=== PATIENT | male | born 1940 | race Caucasian/White ===

== ENCOUNTER 2019-10-21 02:09 | Inpatient (IN) | payer MEDICARE ==
[~2019-10-21] VITALS: Ht 175.3 cm; Wt 123.6 kg
[2019-10-21] MEDS ORDERED: DICLOFENAC SOD100 G1 TOP (02:23)
[2019-10-21] MEDS ORDERED: TAMSULOSIN HCL0.4 M1 PO (02:24)
[2019-10-21] MEDS ORDERED: FUROSEMIDE40 MG PO (02:24)
[2019-10-21] MEDS ORDERED: LOSA50 PO (02:24)
[2019-10-21] MEDS ORDERED: Klor-Con 1010 MEQ PO (02:24)
[2019-10-21] MEDS ORDERED: LEVOCETIRIZINE D5 MG PO (02:24)
[2019-10-21] MEDS ORDERED: DOXA4 PO (02:26)
[2019-10-21] MEDS ORDERED: AMLO10 PO (02:26)
[2019-10-21 03:07] LABS: BASOPHILS ABSOLUTE AUTO 0.06 K/mm3 (0.00-0.23); BASOPHILS PERCENT AUTO 1 % (0-2); EOSINOPHILS ABSOLUTE AUTO 0.15 K/mm3 (0.00-0.68); EOSINOPHILS PERCENT AUTO 2 % (0-6); Hematocrit 44.2 % (37.0-53.0); Hemoglobin 14.7 g/dL (13.5-17.5); IMMATURE GRAN ABSOLUTE AUTO 0.04 K/mm3 (0.00-0.10); IMMATURE GRAN PERCENT AUTO 1 % (0-1); LYMPHOCYTES ABSOLUTE AUTO 1.52 K/mm3 (0.84-5.20); LYMPHOCYTES PERCENT AUTO 17 % (21-46); MONOCYTES ABSOLUTE AUTO 0.71 K/mm3 (0.16-1.47); MONOCYTES PERCENT AUTO 8 % (4-13); Mean Corpuscular HGB 31.5 pg (26.0-34.0); Mean Corpuscular HGB Conc 33.3 g/dL (31.5-36.5); Mean Corpuscular Volume 95 fL (80-100); Mean Platelet Volume 10.3 fL (9.1-12.4); NEUTROPHILS ABSOLUTE AUTO 6.34 K/mm3 (1.96-9.15); NEUTROPHILS PERCENT AUTO 72 % (41-73); Platelet Count 230 K/mm3 (150-400); RDW Coefficient Variation 12.7 % (11.7-14.2); RDW Standard Deviation 44.6 fL (35.1-46.3); Red Blood Cell Count 4.66 M/mm3 (4.30-5.90); White Blood Cell Count 8.82 K/mm3 (4.00-11.30)
[2019-10-21 03:24] LABS: Alanine Aminotransfer (ALT/SGP 31 U/L (12-78); Albumin, Blood 3.1 g/dL (3.4-5.0); Albumin/Globulin Ratio 0.7 (0.8-1.8); Alk Phos 96 U/L (50-136); Anion Gap 5 mmol/L (6-16); Aspartate Aminotrans (AST/SGOT 64 U/L (12-37); Bilirubin, Total 0.6 mg/dL (0.1-1.0); Blood Urea Nitrogen 14 mg/dL (8-24); Bun/Creatinine Ratio 15.3 (12.0-20.0); CO2, Blood 27 mmol/L (21-32); Calcium, Blood 8.7 mg/dL (8.5-10.1); Chloride, Blood 105 mmol/L (98-108); Creatinine, Blood 0.92 mg/dL (0.60-1.20); Globulin, Blood 4.7 g/dL (2.2-4.0); Glomerular Filtration Rate >60 (60-); Glucose, Blood 172 mg/dL (70-99); Potassium, Blood 3.7 mmol/L (3.5-5.5); Sodium, Blood 137 mmol/L (136-145); Total Protein, Blood 7.8 g/dL (6.4-8.2)
[2019-10-21 03:49] LABS: International Normalized Ratio 1.01; Prothrombin Time Results 10.8 Sec (9.7-11.5)
[2019-10-21 04:25] LABS: CHOL/HDL RATIO 4.4; Cholesterol 175 mg/dL (50-200); HDL Cholesterol 40 mg/dL (>39); LDL/HDL RATIO 2.7; Low Density Lipoprotein Chol 106 mg/dL (0-110); Triglycerides 143 mg/dL (30-160); Very Low Density Lipoprot Chol 28 mg/dL (6-32)
--- NOTE | 2019-10-21 05:00 | NUR ---
PT ARRIVES TO ICU PCU STATUS FROM ER FOR DX NSTEMI, DENIES CP/PRESSURE DENIES SOB/DYSPNEA ON ARRIVAL, DENIES NUMBNESS/TINGLING OTHER THAN BASELINE, HE IS SPEAKING IN FULL SENTENCES WITHOUT INCREASED WORK OF BREATHING, LUNGS ARE CLEAR THROUGHOUT, SATS ARE HIGH 90S ON ROOM AIR, RATE WNL, LUNGS ARE CLEAR THROUGHOUT. HRR, SINUS WITH BBB, NITRO PASTE NOTED TO LEFT ANTERIOR CHEST WALL, FULL PULSES X 4 EXTREMITIES, TRACE EDEMA BILAT LOWER EXTREMITIES, SKIN TO BILAT SHINS/CALVES IS NOTED BROWN AND SCALING, PT STATES THAT HE IS SUPPOSED TO WEAR COMPRESSION SOCKS BUT THAT HE DOES NOT HE DOESN'T LIKE THEM. ABD IS DISTENDED WITH NORMOACTIVE BOWEL TONES, FIRM TO PALP, PT DENIES TENDERNESS. URINAL PROVIDED, NO VOID OF THIS TIME. FIELD ACCESS IV TO RIGHT AC SITE WNL, DRESSING IS PEELING UP FROM ARM, PREVIOUS DRESSING REMOVED AND NEW DRESSING PLACED, PT TOLERATED WELL. ORIENTED TO ROOM LAYOUT/CALL SYSTEM, PT STRONGLY ENCOURAGED TO NOT ATTEMPT UP OOB WITHOUT ASSISTANCE SECONDARY TO FALL RISK R/T MONITORING EQUIPMENT AND IV LINES. UNDERSTANDING VERBALIZED.
--- NOTE | 2019-10-21 07:30 | NUR ---
PT A&OX3. DENIES CP OR SOB. ECG SHOWS SR WITH FIRST DEGREE AV BLOCK WITH RATE 50-60'S. SBP TRENDING 170'S. LUNGS DIMINISHED IN THE BASES, BUT MAINTAINS SATS>90% ON RA. NO NOTED COUGH. NPO EXCEPT FOR SIPS OF WATER WITH MEDS-POSSIBLE TEACHER INSTRUMENTAL LATER TODAY. LOWER EXTREMITIES DISCOLORED, BROWNISH APPEARANCE-NO NOTED WOUNDS. DP/PT PULSES PALPABLE AND STRONG.
--- NOTE | 2019-10-21 10:00 | NUR ---
DR. BANGURA HERE TO SEE PT. INFORMED CONSENT OBTAINED FOR CORONARY ANGIOGRAM. RAPID COVID SCREENING COMPLETED.
--- NOTE | 2019-10-21 11:11 | NUR ---
DR. BANGURA NOTIFIED THAT COVID SCREENING NEGATIVE. ALSO MADE AWARE THAT TROPONIN 5.94. NO NEW ORDERS, PT TO GO TO COMPARATOR OPERATOR LATER TODAY.
--- NOTE | 2019-10-21 12:09 | NUR ---
PT HAS BEEN RESTING QUIETLY WHEN NOT DISTURBED. CONTINUES TO DENY CHEST PAIN OR SOB.
--- NOTE | 2019-10-21 12:44 | NUR ---
PARTS CHASER STAFF HERE TO PREP PT FOR ANGIOGRAM. PT VOIDED 275 CC DARK, DONALD URINE THAT APPEARED SLIGHTLY RED TINGED.
--- NOTE | 2019-10-21 12:45 | NUR ---
[facility]ED WITH SOLIS OLIVAS AND SOLIS MCGEE AT BEDSIDE.
--- NOTE | 2019-10-21 15:01 | NUR ---
PT RETURNED TO ICU 9 S/P ANGIOGRAM. PT IS A&0X3-HE DENIES CP OR SOB. PT ONLY COMPLAINT IS THAT HE IS HUNGRY. TR BAND IN PLACE TO RIGHT RADIAL ARTEREOTOMY. 12 CC OF AIR IN CUFF-NO BLEEDING OR HEMATOMA. PT IS TO BE TRANSFERED TO [facility] FOR FURTHER INTERVENTION AND POSSIBLE CABG-DR. BANGURA HAS INITIATED THE TRANSFER AND WILL NOTIFY PT AND STAFF ONCE PHYSICIAN/S HAVE ACCEPTED PT. STAT PTT TO BE DRAWN AND RESUME HEPARIN PER PHARMACY DOSING.
--- NOTE | 2019-10-21 16:12 | NUR ---
ECHO COMPLETE. PTT RESULTS REVIEWED WITH TERRA FROM PHARMACY-CONTINUE TO HOLD HEPARIN DRIP AND REPEAT PTT @ 1630.
--- NOTE | 2019-10-21 16:34 | NUR ---
PT REPORTS 12/24 LOW BACK PAIN-MED WITH FENTANY 25 MCG IVP X 1.
--- NOTE | 2019-10-21 17:09 | NUR ---
HEPARIN DRIP RESUMED AT 14 UNITS/KG/HR.
--- NOTE | 2019-10-21 17:21 | NUR ---
PT REPOSITIONED IN BED AND GIVEN NORCO 10/325 MG FOR COMPLAINT OF 10/10 LOW BACK PAIN. PT ROSALBA UPDATED REGARDING TRANSFER TO [facility]. REPORT PHONED TO SOLIS BRADY AT [facility]. PT TO TRANSFER TO [facility] ROOM 8897 [facility]-AWAITING EMS ARRIVAL FOR TRANSPORT-ETA 1740.
--- NOTE | 2019-10-21 17:37 | NUR ---
REPORT GIVEN TO EMS. PT TRANSPORTED TO [facility] VIA AMBULANCE. PT BELONGINGS AND RECORDS SENT.
== END 2019-10-21 17:45 | disposition short-term general hospital (02) | DRG 251 ==
LOC: ER 02:09 → ICUW 04:50
PROVIDERS: Emergency Medicine; ADMIT Family Medicine
PROC: 4A023N7 Measurement of Cardiac Sampling and Pressure, Left Heart, Percutaneous Approach (ICD-10-PCS; principal; 2019-10-21)
PROC: 02703ZZ Dilation of Coronary Artery, One Artery, Percutaneous Approach (ICD-10-PCS; 2019-10-21)
PROC: B2111ZZ Fluoroscopy of Multiple Coronary Arteries using Low Osmolar Contrast (ICD-10-PCS; 2019-10-21)
PROC: 4A033BC Measurement of Arterial Pressure, Coronary, Percutaneous Approach (ICD-10-PCS; 2019-10-21)
DX: I21.4 Non-ST elevation (NSTEMI) myocardial infarction (principal); Z68.41 Body mass index [BMI] 40.0-44.9, adult; Z96.653 Presence of artificial knee joint, bilateral; I10 Essential (primary) hypertension; Z66 Do not resuscitate; E66.01 Morbid (severe) obesity due to excess calories; I16.0 Hypertensive urgency
CPT/HCPCS: 36415; 71045; 80053; 80061; 83880; 84484; 85025; 85347; 85610; 85730; 92920; 93005; 93010; 93306; 93458; 93571; 96374; 96375; 99152; 99153; 99285-25; A9270-GY; C1725; C1769; C1887; C1894; C8929; J1644; J2250; J3010; J7030; Q9957; Q9967; U0002

== ENCOUNTER 2021-03-07 10:39 | Day surgery (SDC) | payer MEDICARE ==
[~2021-03-07] VITALS: Ht 175.3 cm; Wt 113.2 kg
[~2021-03-07 10:39] MED LIST: AMLO10 PO; ATOR40TA; Aspir 8181 MG; BENADRYL25 M1; CLOP75; DICLOFENAC SOD100 G1 TOP; DOXA4 PO; FUROSEMIDE40 MG PO; Flonase 0.05% N16 GM; Klor-Con 1010 MEQ PO; LEVOCETIRIZINE D5 MG PO; LOSA50 PO; METO25; MULVITA; Nitrostat0.3 MG; Norco 10-325 T1 EACH; TAMSULOSIN HCL0.4 M1 PO
--- NOTE | 2021-03-07 13:22 | NUR ---
03/07/21 1322 Elke Pisano PATIENT POSITIONED ON T MAX WITH SPIDER, WEDGE, GELX3, BOLSTERS, FOAM HOME HEALTH CAREGIVER, ARM MARLEY.
== END 2021-03-07 14:57 | disposition home or self-care (01) ==
LOC: ORSCSDS 10:39
PROVIDERS: Orthopaedic Surgery
PROC: 0RNK4ZZ Release Left Shoulder Joint, Percutaneous Endoscopic Approach (ICD-10-PCS; principal; 2021-03-07 12:00)
PROC: 0LM24ZZ Reattachment of Left Shoulder Tendon, Percutaneous Endoscopic Approach (ICD-10-PCS; principal; 2021-03-07 12:00)
DX: M75.122 Complete rotator cuff tear or rupture of left shoulder, not specified as traumatic (principal); M75.22 Bicipital tendinitis, left shoulder; M75.42 Impingement syndrome of left shoulder; I10 Essential (primary) hypertension; I25.10 Atherosclerotic heart disease of native coronary artery without angina pectoris; E78.5 Hyperlipidemia, unspecified; G47.33 Obstructive sleep apnea (adult) (pediatric); I25.2 Old myocardial infarction; E66.01 Morbid (severe) obesity due to excess calories; Z68.36 Body mass index [BMI] 36.0-36.9, adult; Z79.899 Other long term (current) drug therapy; Z79.82 Long term (current) use of aspirin
CPT/HCPCS: C1713; J0171; J0690; J1100; J2250; J2370; J2405; J2704; J3010; J7120

== ENCOUNTER 2023-05-24 04:53 | Day surgery (SDC) | payer MEDICARE | END 2023-05-24 22:42 | disposition home or self-care (01) | LOC: WOUND 04:53 | DX: L89.152 Pressure ulcer of sacral region, stage 2 (principal); L89.322 Pressure ulcer of left buttock, stage 2; L89.312 Pressure ulcer of right buttock, stage 2; Z88.5 Allergy status to narcotic agent; Z88.8 Allergy status to other drugs, medicaments and biological substances | CPT/HCPCS: G0463 ==

== ENCOUNTER 2023-05-31 03:36 | Day surgery (SDC) | payer MEDICARE | END 2023-05-31 23:17 | disposition home or self-care (01) | LOC: WOUND 03:36 | DX: L89.152 Pressure ulcer of sacral region, stage 2 (principal) | CPT/HCPCS: G0463 ==

== ENCOUNTER 2023-06-07 03:30 | Day surgery (SDC) | payer MEDICARE | END 2023-06-07 22:57 | disposition home or self-care (01) | LOC: WOUND 03:30 | DX: L89.152 Pressure ulcer of sacral region, stage 2 (principal); L89.322 Pressure ulcer of left buttock, stage 2; L89.312 Pressure ulcer of right buttock, stage 2 | CPT/HCPCS: G0463 ==

== ENCOUNTER → 2023-06-15 | Outpatient (CLI) | payer MEDICARE | LOC: LAB 05:30 → LAB SHORT 05:30 | DX: J84.10 Pulmonary fibrosis, unspecified (principal) | CPT/HCPCS: 87070; 87205 ==

== ENCOUNTER 2023-06-21 02:08 | Day surgery (SDC) | payer MEDICARE | END 2023-06-21 23:08 | disposition home or self-care (01) | LOC: WOUND 02:08 | DX: L89.322 Pressure ulcer of left buttock, stage 2 (principal); L89.312 Pressure ulcer of right buttock, stage 2 | CPT/HCPCS: G0463 ==